=== PATIENT | female | born 1980 | race Two or more races ===

== ENCOUNTER 2017-01-03 11:21 | Emergency (ER) | payer SELFPAY ==
[~2017-01-03 11:21] MED LIST: NYST15CR TP; TRAM-29 PO
[2017-01-03 12:50] VITALS: BP 108/68
[2017-01-03] MEDS ORDERED: AMOX500T PO (13:37)
--- NOTE | 2017-01-03 13:38 | PHYS DOC ---
Past Medical History Past Medical History: No Pertinent History Additional Past Medical Histor: chlamydia Past Surgical History: Appendectomy, , Tubal ligation Additional Past Surgical Histo: X 4 Additional Information: Nonsmoker Alcohol Use: None Drug Use: None Adult General Chief Complaint Chief Complaint: EARACHE/EAR PAIN HPI HPI Patient is a 36 year old female who presents with left ear pain for 2 weeks. She reports pain, itching, and decreased hearing in the left ear. She also has nasal congestion and productive cough. She denies fever, sore throat, or difficulty breathing. She sees a PCP at [facility]. Review of Systems Review of Systems Constitutional: Denies fever or chills. [] Eyes: Denies change in visual acuity, redness, or eye pain. [] HENT: Denies sore throat. Reports left ear pain and nasal congestion. Respiratory: Denies shortness of breath. Reports productive cough. Integument: Denies rash or skin lesions. [] Neurologic: Denies headache, focal weakness or sensory changes. [] Allergies Allergies Allergies Coded Allergies Type Severity Reaction Last Updated Verified No Known Drug Allergies 04/22/15 No Physical Exam Physical Exam Constitutional: Well developed, well nourished, no acute distress, non-toxic appearance. [] HENT: Normocephalic, atraumatic, bilateral external ears normal, oropharynx moist, no oral exudates, nose normal. Right TM without erythema or bulging. Left TM is erythematous and bulging with mild ear canal erythema as well. There is no edema of the ear canal or discharge. The TM is intact. There is no posterior pharyngeal erythema or tonsillar edema. Bilateral nasal turbinates are swollen and erythematous with purulent drainage. Eyes: PERRLA, EOMI, conjunctiva normal, no discharge. [] Neck: Normal range of motion, no tenderness, supple, no stridor. [] Cardiovascular: Heart rate regular rhythm, no murmur [] Lungs & Thorax: Bilateral breath sounds clear to auscultation without wheezes, rales, or rhonchi. Skin: Warm, dry, no erythema, no rash. [] Neurologic: Alert and oriented X 3, normal motor function, normal sensory function, no focal deficits noted. [] Psychologic: Affect normal, judgement normal, mood normal. [] Current Patient Data Vital Signs Vital Signs Date Time Temp Pulse Resp B/P Pulse Ox O2 Delivery O2 Flow Rate FiO2 01/03/17 12:50 98.6 67 20 97 Room Air 98.6 EKG EKG [] Radiology/Procedures Radiology/Procedures [] Course & Med Decision Making Course & Med Decision Making Pertinent Labs and Imaging studies reviewed. (See chart for details) [] Dragon Disclaimer Dragon Disclaimer This electronic medical record was generated, in whole or in part, using a voice recognition dictation system. Departure Departure Impression: Primary Impression: AOM (acute otitis media) Disposition: HOME, SELF-CARE Condition: STABLE Referrals: NO PCP (PCP) Patient Instructions: Otitis Media, Adult, [id number] Additional Instructions: You have an ear infection in the left ear. Please complete all the prescribed antibiotics, even if your ear is feeling better. You may take Tylenol or Motrin for fever or pain. Use according to package instructions. Please follow-up with a primary care doctor if your ear pain continues. Return to the emergency department if you have any new or concerning symptoms. Scripts Amoxicillin 500 Mg Tablet2 Tab PO BID #40 TAB Prov:MAURICIO MARTIN 01/03/17 Problem Qualifiers Primary Impression: AOM (acute otitis media) Otitis media type: suppurative Laterality: left Recurrence: not specified as recurrent Spontaneous tympanic membrane rupture: without spontaneous rupture Qualified Code: H66.002 - Acute suppurative otitis media without spontaneous rupture of ear drum, left ear MAURICIO MARTIN Jan 03, 2017 13:37
== END 2017-01-03 13:41 | disposition home or self-care (01) ==
LOC: ER 11:21
DX: H66.002 Acute suppurative otitis media without spontaneous rupture of ear drum, left ear (principal); R05 Cough; R09.81 Nasal congestion
CPT/HCPCS: 99283

== ENCOUNTER 2018-03-17 01:12 | Emergency (ER) | payer SELFPAY | END 2018-03-17 02:28 | disposition home or self-care (01) | LOC: ER 01:12 | DX: H60.93 Unspecified otitis externa, bilateral (principal); H66.93 Otitis media, unspecified, bilateral | CPT/HCPCS: 99283 ==

== ENCOUNTER 2020-02-13 18:32 | Emergency (ER) | payer SELFPAY ==
[~2020-02-13] VITALS: Ht 162.6 cm; Wt 104.5 kg
[~2020-02-13 18:32] MED LIST changes: +AMOX1TAB61 PO; +AMOX500T PO; +CIPR7.5D EACH EAR; +FLUO20CA20 PO; +HYDR-3164 PO; +IBUP-1060 PO; -TRAM-29 PO; +TRAM-48 PO
[2020-02-13] MEDS ORDERED: fentaNYL PF VIAL 100 MCG/2 ML VIAL IM ONE (18:45)
[2020-02-13] MEDS ORDERED: ONDANSETRON ODT 4 MG TAB.RAPDIS. PO ONE (18:45)
--- NOTE | 2020-02-13 19:01 | PHYS DOC ---
Past Medical History Additional Past Medical Histor: chlamydia, recurrent ear infections Past Surgical History: Appendectomy, , Tubal ligation Additional Past Surgical Histo: X 4 Smoking Status: Never Smoker Alcohol Use: None Drug Use: None General Adult EDM: Chief Complaint: KNEE INJURY HPI: HPI: Patient is a 39 year old female who presents with report of injury to her left knee that occurred about 40 minutes of prior to arrival when she fell off of porch at home. Patient states she felt something crack in her knee. She rates pain at an 8 out of 10 and states that she is not able to bear weight on that knee because of the pain. She denies any head injury or loss of consciousness. [] Review of Systems: Review of Systems: Constitutional: Denies fever or chills. [] Respiratory: Denies cough or shortness of breath. [] Cardiovascular: Denies chest pain or edema. [] Musculoskeletal: Complains of left knee pain. [] Integument: Denies rash. [] Neurologic: Denies headache, focal weakness or sensory changes. [] Heart Score: Risk Factors: Risk Factors: DM, Current or recent (<one month) smoker, HTN, HLP, family history of CAD, obesity. Risk Scores: Score 0 - 3: 2.5% MACE over next 6 weeks - Discharge Home Score 4 - 6: 20.3% MACE over next 6 weeks - Admit for Clinical Observation Score 7 - 10: 72.7% MACE over next 6 weeks - Early Invasive Strategies Current Medications: Current Medications Medications (Trade) Dose Ordered Sig/Venkatesh Start Time Stop Time Status Last Admin Dose Admin Fentanyl Citrate (Fentanyl 2ml Vial) 75 mcg 1X ONCE 02/13/20 18:45 02/13/20 18:46 UNV Ondansetron HCl (Zofran Odt) 4 mg 1X ONCE 02/13/20 18:45 02/13/20 18:46 UNV Allergies: Allergies: Allergies Coded Allergies Type Severity Reaction Last Updated Verified No Known Drug Allergies 04/22/15 No Physical Exam: PE: Constitutional: Well developed, well nourished, no acute distress, non-toxic appearance. [] Neck: Normal range of motion, no tenderness, supple, no stridor. [] Cardiovascular: Regular rate and rhythm [] Lungs & Thorax: Bilateral breath sounds clear to auscultation [] Abdomen: Bowel sounds normal, soft, no tenderness. [] Skin: Warm, dry, no erythema, no rash. [] Extremities: Examination of left knee demonstrates abrasion overlying the anterior aspect of knee with tenderness over the patella. Unable to perform ligamentous testing due to pain. [] Neurologic: Alert and oriented X 3, no focal deficits noted. [] EKG: EKG: [] Radiology/Procedures: Radiology/Procedures: [] Impression: PROCEDURE: KNEE LEFT 3V Left knee x-rays 3 views HISTORY: Fall, pain. FINDINGS: No fracture. No dislocation. No arthritic change. Soft tissues are unremarkable. At the distal femoral metadiaphysis eccentrically within the medullary bone laterally there is an oval 3.5 x 1.5 cm circumscribed mildly lytic lesion with a thin well-defined sclerotic margin, along its upper, lateral and posterior aspect there is greater degree of bony sclerosis at the cortical bone which is mildly thickened. IMPRESSION: No acute osseous injury. There is a distal femoral metadiaphysis eccentric well-defined lytic lesion with a thin sclerotic margin with some eccentric bony sclerosis along the cortex. 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 A bone cyst with some reactive bony sclerosis about its margin is also a possibility. Given the patient's age, other etiologies cannot be excluded, although no aggressive periosteal reaction, cortical disruption or obvious soft tissue mass is evident to suggest an aggressive lesion. This could be further assessed with a nuclear medicine bone scan to exclude associated abnormal activity. Six-month follow-up x-rays could also be performed to document stability. Electronically signed by: Caesar Yousif MD (02/13/2020 7:18 PM) [facility] Course & Med Decision Making: Course & Med Decision Making Pertinent Labs and Imaging studies reviewed. (See chart for details) [] Dragon Disclaimer: Dragon Disclaimer: This electronic medical record was generated, in whole or in part, using a voice recognition dictation system. Departure Departure Impression: Primary Impression: Knee sprain Qualified Codes: S83.92XA - Sprain of unspecified site of left knee, initial encounter Disposition: 01 HOME, SELF-CARE Condition: STABLE Referrals: NO PCP (PCP) Patient Instructions: Knee Sprain Scripts Hydrocodone/Apap 5-325 (NORCO 5-325 TABLET) 1 Each Tablet 1-2 EACH PO PRN Q6HRS PRN for PAIN, #15 as needed for pain Prov: JUAN M GONG Jr. DO 02/13/20 Diclofenac Sodium (DICLOFENAC SODIUM) 50 Mg Tablet. 1 TAB PO BID PRN for PAIN, #20 TAB Prov: JUAN M GONG Jr. DO 02/13/20 JUAN M GONG Jr. DO February 13, 2020 19:01
--- NOTE | 2020-02-13 19:21 | RAD ---
Left knee x-rays 3 views HISTORY: Fall, pain. FINDINGS: No fracture. No dislocation. No arthritic change. Soft tissues are unremarkable. At the distal femoral metadiaphysis eccentrically within the medullary bone laterally there is an oval 3.5 x 1.5 cm circumscribed mildly lytic lesion with a thin well-defined sclerotic margin, along its upper, lateral and posterior aspect there is greater degree of bony sclerosis at the cortical bone which is mildly thickened. IMPRESSION: No acute osseous injury. There is a distal femoral metadiaphysis eccentric well-defined lytic lesion with a thin sclerotic margin with some eccentric bony sclerosis along the cortex. 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 A bone cyst with some reactive bony sclerosis about its margin is also a possibility. Given the patient's age, other etiologies cannot be excluded, although no aggressive periosteal reaction, cortical disruption or obvious soft tissue mass is evident to suggest an aggressive lesion. This could be further assessed with a nuclear medicine bone scan to exclude associated abnormal activity. Six-month follow-up x-rays could also be performed to document stability. Electronically signed by: Caesar Yousif MD (02/13/2020 7:18 PM) [facility]
--- NOTE | 2020-02-13 20:01 | RAD ---
AP pelvis x-ray HISTORY: Fall, pain. FINDINGS: No fracture. No dislocation. No arthritic change. Pelvic phleboliths noted. IMPRESSION: No acute osseous injury. Left femur AP lateral x-rays HISTORY: Fall, pain. FINDINGS: No fracture. No dislocation. Soft tissues are unremarkable. 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 IMPRESSION: No acute osseous injury. Electronically signed by: Caesar Yousif MD (02/13/2020 7:57 PM) [facility]
[2020-02-13] MEDS ORDERED: HYDROmorphone 2 MG/ML VIAL IM ONE (20:15)
[2020-02-13] MEDS ORDERED: HYDR-3164 PO (20:17)
[2020-02-13] MEDS ORDERED: DICL50TA4 PO (20:17)
[2020-02-13 20:42] VITALS: BP 132/67
== END 2020-02-13 21:01 | disposition home or self-care (01) ==
LOC: ER 18:32
DX: S83.8X2A Sprain of other specified parts of left knee, initial encounter (principal); M25.512 Pain in left shoulder; Z90.89 Acquired absence of other organs; Z98.51 Tubal ligation status; Z98.890 Other specified postprocedural states; X58.XXXA Exposure to other specified factors, initial encounter; Y93.89 Activity, other specified; Y92.009 Unspecified place in unspecified non-institutional (private) residence as the place of occurrence of the external cause; Y99.8 Other external cause status
CPT/HCPCS: 29505; 72170; 73552; 73562; 96372; 99284; J1170; J3010; Q0162

== ENCOUNTER 2020-04-09 23:14 | Emergency (ER) | payer SELFPAY ==
[~2020-04-09] VITALS: Ht 162.6 cm; Wt 100.0 kg
[~2020-04-09 23:14] MED LIST changes: +DICL50TA4 PO
[2020-04-09 23:29] LABS: BILIRUBIN,URINE NEGATIVE (NEG); CLARITY,URINE CLEAR; COLOR,URINE YELLOW; NITRITE,URINE NEGATIVE (NEG); PH,URINE 5.5 (<5.0-8.0); PROTEIN,URINE NEGATIVE (NEG-TRACE)
[2020-04-09 23:32] LABS: BACTERIA,URINE 0 /HPF (0-FEW); RBC,URINE 0 /HPF (0-2); SQUAMOUS EPITHELIAL CELL,UR FEW /LPF; WBC,URINE OCC /HPF (0-4)
--- NOTE | 2020-04-09 23:43 | PHYS DOC ---
Past Medical History Past Medical History: Depression, Hypothyroid Additional Past Medical Histor: chlamydia, recurrent ear infections, pre- diabetes Past Surgical History: Appendectomy, , Tubal ligation Additional Past Surgical Histo: X 4 Smoking Status: Never Smoker Alcohol Use: None Drug Use: None General Adult EDM: Chief Complaint: VAGINAL PROBLEM HPI: HPI: 39-year-old female presents with vaginal discharge and pain at her introitus patient also says pain radiates to her rectum. Patient is and has had no new sexual partners but did have intercourse today with pain. Patient also describes dysuria. Pain is moderate with intercourse and mild at rest. Describes as burning with urination. Patient does states she did had a new soap recently. Review of Systems: Review of Systems: Constitutional: Denies fever or chills. [] Eyes: Denies change in visual acuity. [] HENT: Denies nasal congestion or sore throat. [] Respiratory: Denies cough or shortness of breath. [] Cardiovascular: Denies chest pain or edema. [] GI: Denies abdominal pain, nausea, vomiting, bloody stools or diarrhea. [] : Complains of dysuria and vaginal discharge Musculoskeletal: Denies back pain or joint pain. [] Integument: Denies rash. [] Neurologic: Denies headache, focal weakness or sensory changes. [] Endocrine: Denies polyuria or polydipsia. [] Lymphatic: Denies swollen glands. [] Psychiatric: Denies depression or anxiety. [] Heart Score: Risk Factors: Risk Factors: DM, Current or recent (<one month) smoker, HTN, HLP, family history of CAD, obesity. Risk Scores: Score 0 - 3: 2.5% MACE over next 6 weeks - Discharge Home Score 4 - 6: 20.3% MACE over next 6 weeks - Admit for Clinical Observation Score 7 - 10: 72.7% MACE over next 6 weeks - Early Invasive Strategies Allergies: Allergies: Allergies Coded Allergies Type Severity Reaction Last Updated Verified No Known Drug Allergies 04/22/15 No Physical Exam: PE: Constitutional: Well developed, well nourished, no acute distress, non-toxic appearance. [] HENT: Normocephalic, atraumatic, bilateral external ears normal, oropharynx moist, no oral exudates, nose normal. [] Eyes: PERRLA, EOMI, conjunctiva normal, no discharge. [] Neck: Normal range of motion, no tenderness, supple, no stridor. [] Cardiovascular:Heart rate regular rhythm, Lungs & Thorax: No respiratory distress Abdomen: Bowel sounds normal, soft, no tenderness, no masses, no pulsatile masses. [] : Wire Fence Erector present, mild white vaginal discharge. Mild inflammation in the introital area, no cervical motion tenderness mild white discharge Skin: Warm, dry, no erythema, no rash. [] Back: No tenderness, no CVA tenderness. [] Extremities: No tenderness, no cyanosis, no clubbing, ROM intact, no edema. [] Neurologic: Alert and oriented X 3, normal motor function, normal sensory function, no focal deficits noted. [] Psychologic: Affect normal, judgement normal, mood normal. [] Current Patient Data: Labs: Laboratory Tests Test 04/09/20 23:10 04/10/20 00:01 Urine Collection Type Unknown Urine Color Yellow Urine Clarity Clear Urine pH 5.5 Urine Specific [place] >=1.030 Urine Protein Negative mg/dL Urine Glucose (UA) Negative mg/dL Urine Ketones (Stick) Trace mg/dL Urine Blood Negative Urine Nitrite Negative Urine Bilirubin Negative Urine Urobilinogen Dipstick 1.0 mg/dL Urine Leukocyte Esterase Negative Urine RBC 0 /HPF Urine WBC Occ /HPF Urine Squamous Epithelial Cells Few /LPF Urine Bacteria 0 /HPF Urine Mucus Marked /LPF Urine Test Negative Current Medications Medications (Trade) Dose Ordered Sig/Venkatesh Route PRN Reason Start Time Stop Time Status Last Admin Dose Admin Fluconazole (Diflucan) 150 mg 1X ONCE PO 04/10/20 01:30 04/10/20 01:31 Laboratory Tests Test 04/09/20 23:10 Urine Collection Type Unknown Urine Color Yellow Urine Clarity Clear Urine pH 5.5 (<5.0-8.0) Urine Specific [place] >=1.030 (1.000-1.030) Urine Protein Negative mg/dL (NEG-TRACE) Urine Glucose (UA) Negative mg/dL (NEG) Urine Ketones (Stick) Trace mg/dL (NEG) Urine Blood Negative (NEG) Urine Nitrite Negative (NEG) Urine Bilirubin Negative (NEG) Urine Urobilinogen Dipstick 1.0 mg/dL (0.2 mg/dL) Urine Leukocyte Esterase Negative (NEG) Urine RBC 0 /HPF (0-2) Urine WBC Occ /HPF (0-4) Urine Squamous Epithelial Cells Few /LPF Urine Bacteria 0 /HPF (0-FEW) Urine Mucus Marked /LPF EKG: EKG: [] Radiology/Procedures: Radiology/Procedures: [] Course & Med Decision Making: Course & Med Decision Making Pertinent Labs and Imaging studies reviewed. (See chart for details) 39-year-old female presents with signs and symptoms consistent with vaginitis. We will treat for candidal infection although her wet mount was negative. Deneen ent does have a new soap and I am told her to stop with soap and no intercourse for the next week. We will given oral Diflucan here Dragon Disclaimer: Dragon Disclaimer: This electronic medical record was generated, in whole or in part, using a voice recognition dictation system. Departure Departure Impression: Primary Impression: Vaginitis Disposition: 01 HOME, SELF-CARE Condition: STABLE Referrals: NO PCP (PCP) DON AVINA MD 2-3 DAYS Patient Instructions: Vaginitis, [id number] Additional Instructions: EMERGENCY DEPARTMENT GENERAL DISCHARGE INSTRUCTIONS THANK YOU for coming to [facility] ([facility]) today and trusting us with your care. We trust that you had a positive experience in our Emergency Department. If you wish to speak to the department Management you can contact the machining department supervisor at . YOUR FOLLOW UP INSTRUCTIONS ARE FOLLOWS: Do you have a private doctor? If you do not have a private doctor, please ask for a resource list of physicians or clinics that may be able to assist you with follow up care. The Emergency Physician has interpreted your x-rays. The X-ray specialist will also review them. If there is a change in the findings you will be notified in 48 hours when at all possible. A lab test or lab culture may have been done, your results will be reviewed and you will be notified if you need a change in treatment. ADDITIONAL INSTRUCTIONS AND INFORMATION Your care today has been supervised by a physician who is specially trained in emergency care. Many problems require more than one evaluation for a complete diagnosis and treatment. We recommend that you schedule your follow up appointment as recommended to ensure complete treatment of your illness or injury. If you are unable to obtain follow up care and continue to have a problem, or if your condition worsens we recommend that you return to the ED. We are not able to safely determine your condition over the phone nor are we able to give sound medical advice over the phone. For these safety reasons, if you call for medical advice we will ask you to come to the ED for further evaluation If you have any questions regarding these discharge instructions please call the ED at . SAFETY INFORMATION In the interest of safety, wellness, and injury prevention; we encourage you to wear your seatbelt, if you smoke; quit smoking, and we encourage your family to use protective helmet for bicycling and other sporting events that present an increased risk for head injury. IF YOUR SYMPTOMS WORSEN OR NEW SYMPTOMS DEVELOP, OR YOU HAVE CONCERNS ABOUT YOUR CONDITION; OR IF YOUR CONDITION WORSENS WHILE YOU ARE WAITING FOR YOUR FOLLOW UP APPOINTMENT; EITHER CONTACT YOUR PRIMARY CARE DOCTOR, THE PHYSICIAN WHOSE NAME AND NUMBER YOU WERE GIVEN, OR RETURN TO THE ED IMMEDIATELY. Justicifation of Admission Dx: Justifications for Admission: Justification of Admission Dx: N/A MAMIE ROJAS MD Apr 09, 2020 23:43
[2020-04-10 01:06] LABS: U PREG PATIENT NEGATIVE (NEG)
[2020-04-10 01:23] VITALS: BP 114/75
[2020-04-10] MEDS ORDERED: FLUCONAZOLE 100 MG TABLET. PO ONE (01:30)
[2020-04-11 22:08] LABS: GC PROBE Negative (Negative)
== END 2020-04-10 01:37 | disposition home or self-care (01) ==
LOC: ER 23:14
DX: N76.0 Acute vaginitis (principal); B96.89 Other specified bacterial agents as the cause of diseases classified elsewhere; R10.2 Pelvic and perineal pain; R30.0 Dysuria; F32.9 Major depressive disorder, single episode, unspecified; E03.9 Hypothyroidism, unspecified; Z98.51 Tubal ligation status; Z90.89 Acquired absence of other organs; Z98.890 Other specified postprocedural states
CPT/HCPCS: 81001; 81025; 87491; 87591; 99284; Q0111

== ENCOUNTER 2020-10-27 09:38 | Emergency (ER) | payer SELFPAY ==
[~2020-10-27] VITALS: Ht 162.6 cm; Wt 113.0 kg
[2020-10-27 09:40] VITALS: BP 121/66
[2020-10-27] MEDS ORDERED: IBUPROFEN 200 MG TABLET. PO ONE (10:15)
--- NOTE | 2020-10-27 10:25 | RAD ---
XR HAND_LEFT 3 VIEWS 10/27/2020 10:05 AM INDICATION: Left thumb pain. COMPARISON: None available. TECHNIQUE: 3 views the left hand are provided. FINDINGS/ IMPRESSION: There is no acute fracture or dislocation. Joint spaces are maintained. Bone mineralization is within normal limits. Regional soft tissues are within normal limits. There is no soft tissue gas or osseou s erosion. No radiopaque foreign body. There is remodeling of the distal ulna which appears chronic with negative ulnar variance variance. Electronically signed by: Rosey Mahoney MD (10/27/2020 10:22 AM) [facility]
--- NOTE | 2020-10-27 10:30 | PHYS DOC ---
Past Medical History Past Medical History: Depression, Hypothyroid Additional Past Medical Histor: chlamydia, recurrent ear infections, pre- diabetes Past Surgical History: Appendectomy, , Tubal ligation Smoking Status: Never Smoker Alcohol Use: None Drug Use: None General Adult EDM: Chief Complaint: THUMB HPI: HPI: 39-year-old female presents with report of left thumb pain after she had it "pulled back "after trying to move a dresser yesterday. Patient reports pain with any movement of her thumb. Denies deformity. Reports some swelling. Patient denies . Reports history of tubal ligation. Review of Systems: Review of Systems: Constitutional: Denies fever or chills Musculoskeletal: Denies back pain; reports left thumb pain Integument: Denies rash or skin lesions Neurologic: Denies headache, focal weakness or sensory changes Complete systems were reviewed and found to be within normal limits, except as documented in this note. Current Medications: Current Medications Medications (Trade) Dose Ordered Sig/Venkatesh Start Time Stop Time Status Last Admin Dose Admin Ibuprofen (Motrin) 600 mg 1X ONCE 10/27/20 10:15 10/27/20 10:16 DC 10/27/20 10:14 600 MG Allergies: Allergies: Allergies Coded Allergies Type Severity Reaction Last Updated Verified No Known Drug Allergies 04/22/15 No Physical Exam: PE: Constitutional: Well developed, well nourished, no acute distress, non-toxic appearance HENT: Normocephalic, atraumatic Eyes: Conjunctiva normal, no discharge Neck: Normal range of motion, no tenderness, supple Lungs & Thorax: No respiratory distress, equal chest rise and fall Skin: Warm, dry, no erythema, facial nevus noted to right scalp/forehead Extremities: Pain to MCP left thumb, no deformity, tender on ROM Neurologic: Alert and oriented X 3, no focal deficits noted Psychologic: Affect normal, judgment normal Current Patient Data: Vital Signs: Vital Signs Date Time Temp Pulse Resp B/P (MAP) Pulse Ox O2 Delivery O2 Flow Rate FiO2 10/27/20 09:40 97.1 73 18 121/66 (84) 100 Room Air 97.1 EKG: EKG: [] Radiology/Procedures: Radiology/Procedures: PROCEDURE: HAND LEFT 3V XR HAND_LEFT 3 VIEWS 10/27/2020 10:05 AM INDICATION: Left thumb pain. COMPARISON: None available. TECHNIQUE: 3 views the left hand are provided. FINDINGS/ IMPRESSION: There is no acute fracture or dislocation. Joint spaces are maintained. Bone mineralization is within normal limits. Regional soft tissues are within normal limits. There is no soft tissue gas or osseous erosion. No radiopaque foreign body. There is remodeling of the distal ulna which appears chronic with negative ulnar variance variance. Electronically signed by: Rosey Mahoney MD (10/27/2020 10:22 AM) [facility] Course & Med Decision Making: Course & Med Decision Making Pertinent Imaging studies reviewed. (See chart for details) Patient presents with report of having her left thumb pulled backwards. Reports pain with any movement. No deformity noted. X-ray obtained without acute process. Concern for gamekeeper's thumb. Thumb spica therefore applied. Symptomatic treatment provided. Patient stable for discharge with outpatient follow-up with PCP/orthopedics. Orthopedic referral provided. Discussed findings and plan with patient, who acknowledges understanding and agreement. Dragon Disclaimer: Ingrid Disclaimer: This electronic medical record was generated, in whole or in part, using a voice recognition dictation system. Splinting Splinting : Location: Left thumb Hand-Made Type: orthoglass Splint: thumb spica Pre-Proc Neuro Vasc Exam: normal Post-Proc Neuro Vasc Exam: normal, unchanged from pre-exam Departure Departure Impression: Primary Impression: Gamekeeper's thumb of left hand Qualified Codes: S53.32XA - Traumatic rupture of left ulnar collateral ligament, initial encounter Disposition: 01 DC HOME SELF CARE/HOMELESS Condition: STABLE Referrals: NO PCP (PCP) NATALIE KESSLER MD Patient Instructions: Gamekeeper's, Skier's Thumb, Splint Care, [id number] Additional Instructions: Use over the counter Tylenol and/or Ibuprofen for pain or discomfort. ICE area of discomfort 20 min on then leave off next 20 mins. Repeat several times daily for next few days. NE BEARD DO Oct 27, 2020 10:30
== END 2020-10-27 10:50 | disposition home or self-care (01) ==
LOC: ER 09:38
DX: S53.32XA Traumatic rupture of left ulnar collateral ligament, initial encounter (principal); E03.9 Hypothyroidism, unspecified; X50.1XXA Overexertion from prolonged static or awkward postures, initial encounter; Y93.89 Activity, other specified; Y92.89 Other specified places as the place of occurrence of the external cause; Y99.8 Other external cause status
CPT/HCPCS: 29125; 73130; 99283

== ENCOUNTER 2021-06-12 16:12 | Emergency (ER) | payer SELFPAY ==
[~2021-06-12] VITALS: Ht 165.1 cm; Wt 113.5 kg
[2021-06-12 17:35] VITALS: BP 122/77
--- NOTE | 2021-06-12 17:35 | PHYS DOC ---
Past Medical History Past Medical History: Depression, Hypothyroid Additional Past Medical Histor: chlamydia, recurrent ear infections, pre- diabetes Past Surgical History: Appendectomy, , Tubal ligation Smoking Status: Never Smoker Alcohol Use: None Drug Use: None General Adult EDM: Chief Complaint: FACE PROBLEM HPI: HPI: Patient is a 40 year old female with history of prediabetes who presents with left ear pain and swelling since of last week. Has become progressively worse. Does report chills. Denies outright fever. Pain has now started to include the area in front of her left ear. States that she has had ear infections in the past, but not since she was a child. She does have a PCP. Denies antibiotic allergies. No recent swimming/hot tub. Review of Systems: Review of Systems: Constitutional: Denies fever or chills. [] Eyes: Denies change in visual acuity. [] HENT: Left ear pain. [] Respiratory: Denies cough or shortness of breath. [] Cardiovascular: Denies chest pain or edema. [] GI: Denies abdominal pain, nausea, vomiting, bloody stools or diarrhea. [] : Denies dysuria. [] Musculoskeletal: Denies back pain or joint pain. [] Integument: Denies rash. [] Neurologic: Denies headache, focal weakness or sensory changes. [] Endocrine: Denies polyuria or polydipsia. [] Lymphatic: Denies swollen glands. [] Psychiatric: Denies depression or anxiety. [] Heart Score: C/O Chest Pain: No Risk Factors: Risk Factors: DM, Current or recent (<one month) smoker, HTN, HLP, family history of CAD, obesity. Risk Scores: Score 0 - 3: 2.5% MACE over next 6 weeks - Discharge Home Score 4 - 6: 20.3% MACE over next 6 weeks - Admit for Clinical Observation Score 7 - 10: 72.7% MACE over next 6 weeks - Early Invasive Strategies Allergies: Allergies: Allergies Coded Allergies Type Severity Reaction Last Updated Verified No Known Drug Allergies 04/22/15 No Physical Exam: PE: Constitutional: Well developed, well nourished, no acute distress, non-toxic appearance. [] HENT: Left auditory canal with edema and tenderness to touch. With a small speculum TM did appear normal. Some mild redness and tenderness front of the tragus. No fluctuance. No trismus. [] Eyes: PERRLA, EOMI, conjunctiva normal, no discharge. [] Neck: Normal range of motion, no tenderness, supple, no stridor. [] Cardiovascular:Heart rate regular rhythm, no murmur [] Lungs & Thorax: Bilateral breath sounds clear to auscultation [] Abdomen: Bowel sounds normal, soft, no tenderness, no masses, no pulsatile masses. [] Skin: Warm, dry, no erythema, no rash. [] Back: No tenderness, no CVA tenderness. [] Extremities: No tenderness, no cyanosis, no clubbing, ROM intact, no edema. [] Neurologic: Alert and oriented X 3, normal motor function, normal sensory function, no focal deficits noted. [] Psychologic: Affect normal, judgement normal, mood normal. [] EKG: EKG: [] Radiology/Procedures: Radiology/Procedures: [] Course & Med Decision Making: Course & Med Decision Making Pertinent Labs and Imaging studies reviewed. (See chart for details) Patient a 40-year-old female with prediabetes presents with approximately 5 days of increasing left ear pain and swelling. Exam consistent with otitis externa. She is well-appearing with normal vital signs. No evidence of a malignant otitis externa. She does have extension anterior to the tragus with some evidence of cellulitis there. Therefore we will treat with both otic and systemic antibiotics. I can see to the TM with a small speculum, do not feel that she requires a wick placement. I have asked her to follow-up with her PCP for close follow-up later this week to ensure symptom improvement. Ingrid Disclaimer: Ingrid Disclaimer: This electronic medical record was generated, in whole or in part, using a voice recognition dictation system. Departure Departure Impression: Primary Impression: Otitis externa Disposition: HOME / SELF CARE / HOMELESS Condition: STABLE Referrals: NANCY FISHER JR, MD (PCP) Patient Instructions: Otitis Externa Additional Instructions: You have an ear infection in your left ear. You will need to take both an oral antibiotic and an ear drop antibiotic. Please take as prescribed for the entire prescription. Please follow-up your primary care doctor later this week to ensure your symptoms are improving. Scripts Levofloxacin (LEVOFLOXACIN) 750 Mg Tablet 1 TAB PO DAILY for 7 Days, #7 TAB 0 Refills Prov: LAUREN BENTLEY MD 06/12/21 Ofloxacin (OFLOXACIN) 5 Ml Drops 5 DROP LEFT EAR BID for 7 Days, #5 ML 2 Refills Prov: LAUREN BENTLEY MD 06/12/21 LAUREN BENTLEY MD Jun 12, 2021 17:35
[2021-06-12] MEDS ORDERED: OFLO5DRO7 LEFT EAR (17:50)
[2021-06-12] MEDS ORDERED: LEVO750T5 PO (17:50)
== END 2021-06-12 18:02 | disposition home or self-care (01) ==
LOC: ER 16:12
DX: H60.92 Unspecified otitis externa, left ear (principal); E03.9 Hypothyroidism, unspecified
CPT/HCPCS: 99283